=== PATIENT | female | born 1960 | race Asian ===

== ENCOUNTER 2025-10-06 16:36 | Inpatient (IN) | payer MEDICARE, OTHER ==
[~2025-10-06] VITALS: Ht 149.9 cm; Wt 71.7 kg
[2025-10-06] MEDS ORDERED: CYCLOBENZAPRINE HCL 10 MG TABLET PO PRN (20:15)
[2025-10-06] MEDS ORDERED: ONDANSETRON 4 MG TABLET PO PRN (20:15)
[2025-10-06] MEDS ORDERED: INSULIN LISPRO 100 UNITS/ML SQ PRN (20:15)
[2025-10-06] MEDS ORDERED: OxyCODONE HCL 5 MG IR TABLET PO PRN (20:15)
[2025-10-06] MEDS ORDERED: DEXTROSE 50%-WATER 25 GM/50 ML SYRINGE IVP PRN (20:15)
[2025-10-06 20:40] VITALS: BP 128/79; PULSE 65; RESP 18; TEMP 97.9; O2SAT 98
[2025-10-06] MEDS: ETHYL ALCOHOL 62% ANTISEPTIC NASAL SANITIZER 0.6 ML AMPUL NASAL SCH (20:59)
[2025-10-06] MEDS: DOCUSATE SODIUM 250 MG CAPSULE PO SCH (21:01)
[2025-10-06] MEDS: HEPARIN SODIUM,PORCINE 5,000 UNITS/ML VIAL SQ SCH (21:02)
[2025-10-06] MEDS: CALCIUM OYSTER SHELL 250 MG-VIT D3 125 UNITS[3.125MCG] TABLET PO SCH (21:02)
[2025-10-06] MEDS: OxyCODONE HCL 5 MG IR TABLET PO PRN (21:02)
[2025-10-07] MEDS: MELATONIN 5 MG TABLET PO PRN (00:37)
[2025-10-07 03:11] VITALS: O2SAT 98
[2025-10-07 03:41] LABS: GLUCOMETER DEV NAME(LOC) 2WR.2C; GLUCOSE,POINT OF CARE 127 MG/DL (70-110)
[2025-10-07] MEDS: ACETAMINOPHEN 325 MG TABLET PO PRN (04:02)
[2025-10-07 06:55] LABS: GLUCOMETER DEV NAME(LOC) 2WR.1D; GLUCOSE,POINT OF CARE 110 MG/DL (70-110)
[2025-10-07 08:00] LABS: ASPARTATE AMINOTRANSFERASE 28 U/L (15-37); CALCIUM, TOTAL 9.9 mg/dL (8.8-10.5); CREATININE 0.65 mg/dL (0.60-1.30); GLOMERULAR FILTR. RATE CALC > 60 mL/min (>60); GLUCOSE,RANDOM 106 mg/dL (70-110); SODIUM SERUM 142 mmol/L (136-145); TOTAL PROTEIN, SERUM 6.8 g/dL (6.4-8.2); UREA NITROGEN, BLOOD 9 mg/dL (7-18)
[2025-10-07 08:19] VITALS: BP 140/79; PULSE 68; RESP 19; TEMP 97.5; O2SAT 99
[2025-10-07] MEDS: POLYETHYLENE GLYCOL 3350 17 GM PACKET PO SCH (08:20)
[2025-10-07] MEDS: BACITRACIN 28 GM OINTMENT TP SCH (08:20)
[2025-10-07] MEDS: TELMISARTAN 20 MG TABLET PO SCH (08:20)
[2025-10-07] MEDS: SENNOSIDES 8.6 MG TABLET PO SCH (08:21)
[2025-10-07] MEDS: METOPROLOL SUCCINATE 25 MG ER TABLET PO SCH (08:21)
[2025-10-07] MEDS: ASPIRIN 325 MG TABLET PO SCH (08:21)
[2025-10-07] MEDS: HEPARIN SODIUM,PORCINE 5,000 UNITS/ML VIAL SQ SCH (08:21)
[2025-10-07 08:35] VITALS: O2SAT 99
[2025-10-07 12:12] LABS: PLATELET COUNT (AUTO) 320 K/uL (150-450); RED BLOOD CELL COUNT(AUTO) 4.14 MIL/uL (4.00-5.20); RED CELL DISTRIBUTION WIDTH 13.9 % (11.5-14.5); WHITE BLOOD COUNT (AUTO) 6.5 K/uL (4.5-11.0)
[2025-10-07 16:20] LABS: GLUCOMETER DEV NAME(LOC) 2WR.2C; GLUCOSE,POINT OF CARE 124 MG/DL (70-110)
[2025-10-07 20:00] VITALS: BP 100/70; PULSE 68; RESP 18; TEMP 97.9; O2SAT 95
[2025-10-07] MEDS: ATORVASTATIN CALCIUM 10 MG TABLET PO SCH (21:33)
[2025-10-08 06:56] LABS: GLUCOMETER DEV NAME(LOC) 2WR.1D; GLUCOSE,POINT OF CARE 113 MG/DL (70-110)
[2025-10-08 08:13] VITALS: BP 120/72; PULSE 66; RESP 19; TEMP 97.7; O2SAT 96
[2025-10-08 08:25] VITALS: BP 120/72; PULSE 66; RESP 19; TEMP 97.7; O2SAT 96
[2025-10-08 08:51] VITALS: O2SAT 96
[2025-10-08 10:15] VITALS: BP 124/84; PULSE 64
[2025-10-08 17:50] LABS: GLUCOMETER DEV NAME(LOC) 2WR.1D; GLUCOSE,POINT OF CARE 114 MG/DL (70-110)
[2025-10-08 20:00] VITALS: BP 126/84; PULSE 65; RESP 18; TEMP 98.6; O2SAT 96
[2025-10-08 22:15] LABS: GLUCOMETER DEV NAME(LOC) 2WR.1D; GLUCOSE,POINT OF CARE 103 MG/DL (70-110)
[2025-10-09 07:00] LABS: GLUCOMETER DEV NAME(LOC) 2WR.2C; GLUCOSE,POINT OF CARE 116 MG/DL (70-110)
[2025-10-09 08:00] VITALS: BP 115/64; PULSE 67; RESP 19; TEMP 97.9; O2SAT 98
[2025-10-09 20:13] VITALS: BP 120/80; PULSE 83; RESP 18; TEMP 97.7; O2SAT 98
[2025-10-09 20:14] VITALS: O2SAT 98
[2025-10-10 08:00] VITALS: BP 128/84; PULSE 75; RESP 19; TEMP 97.8; O2SAT 97
[2025-10-10 19:32] VITALS: BP 107/73; PULSE 83; RESP 18; TEMP 98.1; O2SAT 98
[2025-10-10 23:39] VITALS: O2SAT 98
[2025-10-11 08:00] VITALS: BP 115/79; PULSE 68; RESP 19; TEMP 97.6; O2SAT 98
[2025-10-11 20:00] VITALS: BP 121/78; PULSE 62; RESP 18; TEMP 97.3; O2SAT 100
[2025-10-11 22:34] VITALS: O2SAT 100
[2025-10-12 08:00] VITALS: BP 107/77; PULSE 60; RESP 16; TEMP 97.9; O2SAT 98
[2025-10-12 20:00] VITALS: O2SAT 99
[2025-10-13 08:13] VITALS: BP 110/72; PULSE 65; RESP 19; TEMP 97.9; O2SAT 99
[2025-10-13 12:03] LABS: APPEARANCE,URINE CLEAR (CLEAR); GLUCOSE, URINE (UA) NEGATIVE (NEGATIVE); LEUKOCYTE ESTERASE ,URINE NEGATIVE (NEGATIVE); NITRATE,URINE NEGATIVE (NEGATIVE); OCCULT BLOOD,URINE NEGATIVE (NEGATIVE); SPECIFIC GRAVITIY, URINE 1.006 (1.003-1.030)
[2025-10-13 19:28] VITALS: BP 122/82; PULSE 64; RESP 18; TEMP 97.5; O2SAT 99
[2025-10-13 20:00] VITALS: BP 122/82; PULSE 64; RESP 18; TEMP 97.5; O2SAT 99
[2025-10-14 06:37] VITALS: O2SAT 99
[2025-10-14 08:00] VITALS: BP 115/69; PULSE 62; RESP 18; TEMP 97.9; O2SAT 99
[2025-10-14 19:35] VITALS: BP 110/63; PULSE 67; RESP 18; TEMP 97.5; O2SAT 98
[2025-10-15 05:54] VITALS: O2SAT 98
[2025-10-15 07:30] VITALS: BP 116/66; PULSE 72; RESP 18; TEMP 97.2; O2SAT 97
[2025-10-15 11:30] VITALS: O2SAT 97
[2025-10-15 20:15] VITALS: BP 103/64; PULSE 69; RESP 18; TEMP 98.4; O2SAT 97
[2025-10-15 22:05] VITALS: O2SAT 97
[2025-10-16 07:39] VITALS: BP 113/78; PULSE 57; RESP 19; TEMP 97.4; O2SAT 98
[2025-10-16 08:07] VITALS: BP 116/77; PULSE 57; O2SAT 98
[2025-10-16 09:57] VITALS: BP 122/88; PULSE 73
[2025-10-16] MEDS ORDERED: CALC-1275 PO (13:42)
[2025-10-16] MEDS ORDERED: POLY17PO62 PO (13:42)
[2025-10-16] MEDS ORDERED: METO25XL PO (13:42)
[2025-10-16] MEDS ORDERED: ASPI-1026 PO (13:42)
[2025-10-16] MEDS ORDERED: TELMISARTAN PO (13:42)
[2025-10-16] MEDS ORDERED: SENN-374 PO (13:42)
[2025-10-16] MEDS ORDERED: ATOR10TA69 PO (13:42)
[2025-10-16] MEDS ORDERED: DOCU-412 PO (13:42)
[2025-10-16 16:30] VITALS: BP 107/71; PULSE 65; RESP 18; TEMP 97.7; O2SAT 99
[2025-10-16 19:32] VITALS: BP 109/66; PULSE 64; RESP 18; TEMP 98.6; O2SAT 98
[2025-10-16 22:13] VITALS: O2SAT 98
[2025-10-17 08:00] VITALS: BP 121/79; PULSE 60; RESP 18; TEMP 97.9; O2SAT 98
== END 2025-10-17 12:20 | disposition home or self-care (01) | DRG 57 ==
LOC: 2WR 19:57
PROVIDERS: ADMIT Physical Medicine & Rehabilitation; ATTEND Physical Medicine & Rehabilitation
DX: I69.054 Hemiplegia and hemiparesis following nontraumatic subarachnoid hemorrhage affecting left non-dominant side (principal); E46 Unspecified protein-calorie malnutrition; I11.9 Hypertensive heart disease without heart failure; Z68.31 Body mass index [BMI] 31.0-31.9, adult; R32 Unspecified urinary incontinence; Z74.09 Other reduced mobility; R41.89 Other symptoms and signs involving cognitive functions and awareness; E78.00 Pure hypercholesterolemia, unspecified; R79.89 Other specified abnormal findings of blood chemistry; Z79.899 Other long term (current) drug therapy
CPT/HCPCS: 80053; 81003; 82962; 83036; 85025; 87081; 92507; 92523; 97110; 97112; 97116; 97150; 97163; 97167; 97530; 97535; 99366; J1644